=== PATIENT | female | born 1985 | race Two or more races ===

== ENCOUNTER → 2025-05-24 | Outpatient (CLI) | payer MEDICAID, SELFPAY ==
--- NOTE | 2025-05-24 09:00 | XR_ITS ---
Examination: Screening digital mammography, bilateral Computer aided detection 3-D breast Tomosynthesis, bilateral Date and time of exam: May 24, 2025 0914 hours Indication: Screening Technique: Nonmagnified MLO, CC views of the breasts to been obtained, reconstructed from 3-D Tomosynthesis images. R2 computer aided detection program utilized for evaluation of suspicious masses and/or abnormal calcifications. 3-D Tomosynthesis images obtained. Findings: The breasts are heterogeneously dense, which may obscure small masses Benign calcifications 6 mm nodule circumscribed inner right breast posterior depth 7 cm from the nipple IMPRESSION: BI-RADS Category 0: Incomplete: Need additional imaging evaluation Recommend follow-up spot tomographic views 6 mm nodule circumscribed inner right breast posterior depth 7 cm from the nipple on the CC view as well as spot compression upper right breast MLO view and right breast sonography to complete the workup
== END | disposition home or self-care (01) ==
PROVIDERS: Referring Provider Physician Assistant; Visit Provider Physician Assistant
DX: Z12.31 Encounter for screening mammogram for malignant neoplasm of breast (principal); N63.10 Unspecified lump in the right breast, unspecified quadrant
CPT/HCPCS: 77063; 77067

== ENCOUNTER → 2025-07-18 | Outpatient (CLI) | payer MEDICAID, SELFPAY ==
--- NOTE | 2025-07-18 15:30 | XR_ITS ---
Examination: Breast ultrasound, unilateral, right complete Date and time of exam: July 18, 2025, 1528 hours INDICATIONS: Mammogram May 24, 2025 6 mm nodule inner right breast posterior depth Technique: Real-time alan scale ultrasonographic imaging performed right breast including all 4 quadrants as well as nipple retroareolar and axillary region. Findings: 12:00 cyst 15 x 13 mm 10:00 cyst 4 x 5 mm No solid nodules IMPRESSION: BI-RADS Category 2: Benign findings
--- NOTE | 2025-07-18 16:00 | XR_ITS ---
Examination: Diagnostic digital mammography, unilateral, right Computer aided detection 3-D breast Tomosynthesis, unilateral Date and time of exam:. 07/18/2025, 3:56 p.m. Comparisons: None 05/24/2020 Indications: 5 further evaluation of abnormality seen on prior screening exam Technique: Nonmagnified MLO, CC views of the right breast have been obtained, reconstructed from 3-D Tomosynthesis images. R2 computer aided detection program utilized for evaluation of suspicious masses and/or abnormal calcifications. 3-D Tomosynthesis images obtained. Technologist: Findings: The breasts are heterogeneously dense, which may obscure small masses. No evidence of abnormal masses or suspicious calcifications. The previously described abnormality does not persist on spot compression views and represents superimposition of normal fibroglandular tissue Impression: BI-RADS category 1: Negative findings (within normal) Recommend 1 year follow-up mammogram
== END | disposition home or self-care (01) ==
PROVIDERS: PCP Physician Assistant; Referring Provider Physician Assistant; Visit Provider Physician Assistant
DX: R92.311 Mammographic fatty tissue density, right breast (principal)
CPT/HCPCS: 76641; 77061; 77065; G0279